=== PATIENT | male | born 1985 | race African-American/Black ===

== ENCOUNTER 2024-01-29 13:43 | Outpatient (CLI) | payer BC, SELFPAY ==
--- NOTE | ~2024-01-29 | CT_ITS ---
EXAMINATION: CT lumbar spine wo con DATE: 01/29/2024 14:13 INDICATION: Low back pain rating down the left leg. TECHNIQUE: Computed tomography (CT) of the lumbar spine was performed without intravenous contrast. A utomated exposure control and iterative reconstruction technique were employed. The dose-length produ ct was 1396.87 mGy-cm. COMPARISON: None FINDINGS: Alignment is normal. There is mild chronic anterior wedging of T11-L1 vertebral bodies, lik cristian physiologic. There is mildly decreased disc height at L3-L4 and L4-L5. The following disc levels are specifically discussed: L1-L2: The disc does not extend beyond the endplate margin. There is mild bilateral facet joint osteo arthritis. There is no neural foraminal stenosis. There is no central canal stenosis. L2-L3: The disc does not extend beyond the endplate margin. There is mild bilateral facet joint osteo arthritis. There is no neural foraminal stenosis. There is no central canal stenosis. L3-L4: The disc does not extend beyond the endplate margin. There is mild bilateral facet joint osteo arthritis. There is no neural foraminal stenosis. There is no central canal stenosis. L4-L5: The disc is bulging. There is severe bilateral facet joint osteoarthritis. There is mild bilat eral neural foraminal stenosis. There is no central canal stenosis. L5-S1: The disc is bulging. There is severe bilateral facet joint osteoarthritis. There is mild bilat eral neural foraminal stenosis. There is no central canal stenosis. IMPRESSION: 1. Mild lumbar spondylosis. Reviewed, dictated and finalized at location A. [employer] IMPRESSION: 1. Mild lumbar spondylosis.
== END 2024-01-29 13:44 | disposition home or self-care (01) ==
LOC: ANHIMG 13:57
PROVIDERS: Visit Provider Nurse Practitioner Adult Health
DX: M47.896 Other spondylosis, lumbar region (principal); M25.561 Pain in right knee; R26.2 Difficulty in walking, not elsewhere classified; M79.18 Myalgia, other site; M25.752 Osteophyte, left hip; M25.751 Osteophyte, right hip; M25.551 Pain in right hip; M25.552 Pain in left hip
CPT/HCPCS: 72131